=== PATIENT | female | born 1965 | race Caucasian/White ===

== ENCOUNTER → 2018-01-22 07:00 | Outpatient (CLI) | payer OTHER, SELFPAY ==
--- NOTE | 2018-01-22 06:50 | BI_ITS ---
MAMMOGRAPHY - BILATERAL SCREENING REASON FOR EXAM: Female, 53 years old. Routine annual screening examination. PERTINENT HISTORY: TECHNIQUE: Digital bilateral breast diana (3D mammographic acquisition) in the CC and MLO projections. 2-D mediolateral oblique (MLO) and craniocaudad (CC) views of both breasts were obtained. CAD: Full Field Digital Mammography with Computer Added Detection was performed. COMPARISON: 05/27/2016 FINDINGS: Breast Composition: The breasts are heterogeneously dense, which may obscure small masses. There are no dominant masses or suspicious calcifications. No other significant abnormalities are identified. BI/SCREENING MAMM (CAD), BILAT IMPRESSION: Stable bilateral screening mammogram. Yearly follow-up mammogram recommended. (A) ASSESSMENT CATEGORY: BIRADS Category 2: Benign. A letter regarding these results will be sent to the patient by the facility within 30 days. Approximately 10% of breast cancers are not detected by mammography. A normal mammogram should not delay biopsy of a clinically suspicious abnormality. [id number] Electronically Signed: Charissa Velasquez MD at 15:21 EDT Tel , Service support ,
--- NOTE | 2018-01-22 07:00 | DT_ITS ---
This patient was seen during an EMR downtime January 19, 2018 - January 26, 2018. This patient may have a combination of paper and electronic documentation or all paper documentation. All documentation is viewable within the e-chart portion of [facility] for each patient visit.
== END ==
PROVIDERS: Family Provider Family Medicine; PCP Family Medicine; Visit Provider Family Medicine
DX: Z00.00 Encounter for general adult medical examination without abnormal findings (principal); Z12.31 Encounter for screening mammogram for malignant neoplasm of breast
CPT/HCPCS: 77063; 77067

== ENCOUNTER 2018-02-06 07:00 | Outpatient (RCR) | payer OTHER, SELFPAY ==
--- NOTE | 2018-01-06 07:53 | HP.PTEVAL_ITS ---
Patient's Visit Information RIGOBERTO NAVARRETE is a 53 year old F referred to Physical Therapy by Josy Molina MD with a diagnosis of Shoulder Sprain. Date of Evaluation: 01/06/18 Physical Therapist: Yumiko Curtis - Visit Plan Frequency: 2x /Week Duration: 4 Weeks Plan: Focus on ROM, strength and functional mobility- modalities for pain - Subjective Subjective: Left shoulder pain- when she got the flu shot in the fall the arm never bounced back. Did all her normal stuff but it really hurt the arm. Got sick one night and sat by the toilet and pushed down hard and felt a sharp pain under the armpit and across the chest. Feels like the shoulder is improving but its still bothering her. Describes discomfort as jacinto horse. Sleep: disturbed- hard to get comfortable. worst: 8/10 Agg: reaching overhead, behind her back. Eases: Aleve as needed. Best: 0/10. No N/T in the fingers. Does not feel like nerve pain. No neck pain- no blurred vision, dizziness, PERDOMO. Went as saw MD for wellness who didn't seem to concerned and sent her to PT ( Dr. Molina). No x-rays. Saw a massage therapist who was working and stretching her arm and she could move her arm a little bit more. Feels a pinch in the medial border of the scapula. Work: stays at home with her 2 grandchildren (6 years old and 1 year old). Right hand dominate. PMHx:none Meds: none - Objective Posture: FH, RS, increased guarding of the left UE. Palpation: tender along medial border of the scapula. ROM: Cervical: WNL in all planes no pain, Shoulder: AROM: flexion 120 degrees, abduction: 70 degrees, IR: to pocket, ER: 40 degrees. AAROM: flexion: 160 degrees, flexion: 140 degrees. Strength: Flexion: 4/5, Extn: 4+/5, abd: 4/5, IR/ER: 4/5 Scap: fair- mild winging. Impingment: positive, Empty Can: positive - Goals Goal 1:: Patient will be I with HEP and progression Goal Time Frame: 4-6 Weeks Goal 2:: Patient will demo full AROM of the left shoulder Goal Time Frame: 4-6 Weeks Goal 3:: Patient will maintain proper posture t/o tx session to demo increased scap s/s. Goal Time Frame: 4-6 Weeks Goal 4:: Patient will report sleeping through the night for 1 week without shoulder pain Goal Time Frame: 4-6 Weeks - Rehabilitation Potential Physical Therapy Diagnosis: Patient presents with hypomobility- she has decreased ROM, strength and muscular endurance leading to poor posture and increased pain with ADL's. - Anticipated Interventions Patient/Client Instruction: Educate patient on: Benefits of Fitness Program For the Purpose of:: To improve ability to perform ADL's Therapeutic Exercise to Include: Strength training, Endurance training, Body mechanics, Postural training, Passive ROM, Active ROM, Scapular Strength/ Stabilization For the Purpose of:: To improve muscle performance and motor function TENS: Yes Cryotherapy (ice pack, ice massage): Yes Thermo therapy (hot pack): Yes Ultrasound (thermal/non thermal): Yes For the Purpose of:: To decrease pain Thank you for the opportunity to evaluate your patient. For Medicare and Medicare HMO plans, please review the plan of care and approve it. It will need to be FAXED BACK to us at [phone] for Medicare purposes. Please let me know if there are questions or concerns regarding this plan of care. Physician Signature: Date:
--- NOTE | 2018-02-06 07:23 | HP.PTREVAL_ITS ---
Josy Molina MD, It has been my pleasure to treat RIGOBERTO NAVARRETE over the last 8 visits for Shoulder Sprain. Please see the progress note below for an update on the physical therapy plan of care! Subjective: The shoulder is getting better- plans to continue the weight training- she has weights at home. Sleep is not disturbed- Sitting there is no pain in the shoulder its just when she moves it in certain directions she feels it in the deltoid. Worst in the last few days is a 2/10 but most of hte time is painfree. No aleve this week. Objective/Function: Posture: good throughout session Palpation: not tender ROM : Cervical: WNL in all planes no pain, Shoulder: AROM: flexion 170 degrees, abduction: to ear, IR: equal to other, ER: 40 degrees. Strength: Flexion: 4+/5, Extn: 5/5, abd: 4/5, IR/ER: 4+/5 Scap: fair plus- mild winging. Impingment: positive, Empty Can: positive Plan Plan: Hold- will attempt HEP and call if questions Goals Goal 1:: Patient will be I with HEP and progression Goal Time Frame: 4-6 Weeks Goal Progress: Goal Met Goal 2:: Patient will demo full AROM of the left shoulder Goal Time Frame: 4-6 Weeks Goal Progress: Goal Met Goal 3:: Patient will maintain proper posture t/o tx session to demo increased scap s/s. Goal Time Frame: 4-6 Weeks Goal Progress: Progressing Goal 4:: Patient will report sleeping through the night for 1 week without shoulder pain Goal Time Frame: 4-6 Weeks Goal Progress: Goal Met Anticipated Interventions Patient/Client Instruction: Educate patient on: Benefits of Fitness Program For the Purpose of:: To improve ability to perform ADL's Therapeutic Exercise to Include: Strength training, Endurance training, Body mechanics, Postural training, Passive ROM, Active ROM, Scapular Strength/ Stabilization For the Purpose of:: To improve muscle performance and motor function TENS: Yes Cryotherapy (ice pack, ice massage): Yes Thermo therapy (hot pack): Yes Ultrasound (thermal/non thermal): Yes For the Purpose of:: To decrease pain Please do not hesitate to contact me at [phone] by phone or Fax: if you have questions or concerns regarding this new plan of care! Sincerely, Yumiko Curtis
--- NOTE | 2018-05-12 10:39 | HP.PT.NRP ---
HP - Discharge Summary (1) - Patient Information RIGOBERTO NAVARRETE was seen in my office for initial evaluation on 01/06/18. The following Plan of Care was established for this patient: Initial Frequency: 2x /Week Initial Duration: 4 Weeks - Anticipated Interventions Patient/Client Instruction: Educate patient on: Benefits of Fitness Program For the Purpose of:: To improve ability to perform ADL's Therapeutic Exercise to Include: Strength training, Endurance training, Body mechanics, Postural training, Passive ROM, Active ROM, Scapular Strength/Stabilization For the Purpose of:: To improve muscle performance and motor function TENS: Yes Cryotherapy (ice pack, ice massage): Yes Thermo therapy (hot pack): Yes Ultrasound (thermal/non thermal): Yes For the Purpose of:: To decrease pain This patient was last seen in our office . Pertinent comments regarding their Physical therapy will appear below: Patient has not attended physical therapy in over 8 weeks. At this time patient is appropriate for d/c and return to MD as needed. At this point I will be discontinuing this patient from physical therapy. I would be happy to see this patient again in the future if found appropriate by the physician. Thank you! Yumiko Curtis
== END 2018-02-06 19:00 | disposition home or self-care (01) ==
LOC: PT 07:00
PROVIDERS: Family Provider Family Medicine; PCP Family Medicine; Visit Provider Family Medicine
DX: S46.912D Strain of unspecified muscle, fascia and tendon at shoulder and upper arm level, left arm, subsequent encounter (principal)
CPT/HCPCS: 97014; 97032; 97110; 97161; 97164; G0283

== ENCOUNTER → 2020-03-08 12:36 | Outpatient (CLI) | payer OTHER, SELFPAY ==
[2020-02-29 06:32] VITALS: BMI 27.0
--- NOTE | 2020-03-08 12:39 | RAD_ITS ---
STUDY: X-RAY - PARANASAL SINUSES REASON FOR EXAM: Female, 55 years old. Ear pain and pressure into right side of forehead and face TECHNIQUE: 3 view(s) of the paranasal sinuses were obtained. COMPARISON: None. FINDINGS: Normal visualized frontal, maxillary, ethmoidal and sphenoid sinuses. Normal visualized facial bones. The soft tissue structures are unremarkable. RAD/Sinuses min 3 Views IMPRESSION: Normal x-rays of the paranasal sinuses. Electronically Signed: Clay Gee MD at 12:54 EDT , Service support ,
== END ==
PROVIDERS: PCP Family Medicine; Referring Provider Family Medicine; Visit Provider Family Medicine
DX: H92.01 Otalgia, right ear (principal)
CPT/HCPCS: 70220

== ENCOUNTER → 2021-05-04 06:32 | Outpatient (CLI) | payer OTHER, SELFPAY | PROVIDERS: PCP Family Medicine; Referring Provider Family Medicine; Visit Provider Family Medicine | DX: Z01.84 Encounter for antibody response examination (principal) | CPT/HCPCS: 36415; 86769 ==

== ENCOUNTER → 2022-04-02 | Outpatient (CLI) | payer OTHER, SELFPAY ==
[2022-04-02 13:27] LABS: Anion Gap 6 (5-15); BUN 15 mg/dL (7-18); BUN/Creat Ratio 21.6 RATIO (10-20); Calcium,Total 9.6 mg/dL (8.5-10.1); Chloride 106 mmol/L (98-107); Cholesterol 246 mg/dL (200); Creatinine, Serum 0.69 mg/dL (0.55-1.02); EST Glomerular Filtration Rate 93 mL/min (>60); Est Glom Filt Rate - Afr Amer 113 mL/min (>60); Glucose 75 mg/dL (74-106); High Density Lipoprotein 63 mg/dL; Potassium 3.8 mmol/L (3.5-5.1); Sodium Level 142 mmol/L (136-145); Triglycerides 82 mg/dL; Very Low Density Lipoprotein 16 mg/dL (5-40)
[2022-04-07 15:22] LABS: HPV APTIMA, High Risk Negative (Negative)
[2022-04-07 15:23] LABS: HPV Reflexed? YES, CHARGE PATIENT
== END | disposition home or self-care (01) ==
PROVIDERS: PCP Family Medicine; Referring Provider Family Medicine; Visit Provider Family Medicine
DX: Z00.00 Encounter for general adult medical examination without abnormal findings (principal); Z12.4 Encounter for screening for malignant neoplasm of cervix
CPT/HCPCS: 36415; 80048; 80061; 87624; 88175; G0145

== ENCOUNTER → 2022-04-18 | Outpatient (CLI) | payer OTHER, SELFPAY ==
--- NOTE | 2022-04-18 10:27 | BI_ITS ---
MAMMOGRAPHY - BILATERAL SCREENING REASON FOR EXAM: Female, 57 years old. Routine annual screening examination. PERTINENT HISTORY: Non-contributory. TECHNIQUE: Digital bilateral breast wendi (3D mammographic acquisition) in the CC and MLO projections. 2-D mediolateral oblique (MLO) and craniocaudad (CC) views of both breasts were obtained. CAD: Full Field Digital Mammography with Computer Added Detection was performed. COMPARISON: Comparison is made with prior study of 01/22/2018 and 03/27/2016. FINDINGS: Breast Composition: The breasts are heterogeneously dense, which may obscure small masses. There are no dominant masses or suspicious calcifications. Stable small benign-appearing bilateral axillary lymph nodes. No other significant abnormalities are identified. There has been no significant change since the prior study. BI/SCRN MAMM (CAD)W/WENDI BILAT IMPRESSION: Stable bilateral screening mammogram. Yearly follow-up mammogram recommended. (A) ASSESSMENT CATEGORY: BIRADS Category 2: Benign. A letter regarding these results will be sent to the patient by the facility within 30 days. Approximately 10% of breast cancers are not detected by mammography. A normal mammogram should not delay biopsy of a clinically suspicious abnormality. [id number] Electronically Signed: Raul Brar MD at 11:32 EDT ,
--- NOTE | 2022-04-18 10:32 | BD_ITS ---
STUDY: DUAL ENERGY X-RAY ABSORPTIOMETRY / DXA REASON FOR EXAM: Female, 57 years old. [id number] TECHNIQUE: Bone Mineral Density (BMD) measurements of lumbar spine and bilateral hips were obtained. COMPARISON: Comparison is made with prior study 03/27/2016. FINDINGS: Lumbar Spine (L1-L4): g/cm2 (0.792) / T-score (-2.3) / Z-score (-1.2) Findings are suggestive of osteopenia with a high fracture risk. Left Femur Total: g/cm2 (0.714) / T-score (-1.9) / Z-score (-1.2) Left Femoral Neck: g/cm2 (0.532) / T-score (-2.9) / Z-score (-1.8) Right Femur Total: g/cm2 (0.707) / T-score (-1.9) / Z-score (-1.2) Right Femoral Neck: g/cm2 (0.541) / T-score (-2.8) / Z-score (-1.7) The T-Scores on the most recent prior examination were: Lumbar Spine (L1-L4): There has been worsening of bone density since the previous examination. Left Femur Total: which represents a worsening of 1.3%. Right Femur Total: which represents a worsening of 2.9%. BD/Dexa Bone Density Study IMPRESSION: The patient is considered osteoporotic as outlined below according to World Nick Organization (WHO) criteria with a high fracture risk. There has been worsening of bone density since the previous examination. Reference Information: The T-score is the number of standard deviations above or below the standard which is normal for young adults at their peak bone mineral density. The World Health Organization (WHO) interprets the T-scores as follows: Above -1 Normal bone density Between -1 and -2.5 Osteopenia Equal to / or below -2.5 Osteoporosis As a practical clinical guideline, osteopenia may be graded as follows: Mild -1 through -1.5 Moderate -1.6 through -2.0 Severe -2.1 through -2.4 The Z-score is the number of standard deviations above or below age-matched controls. A Z-score of less than -1.5 would be considered abnormal. References: 1. NIH Osteoporosis and Related Bone Diseases www osteo.org 2. International Society for Clinical Densitometry www iscd.org 3. National Osteoporosis Foundation www nof.org Electronically Signed: Raul Brar MD at 12:46 EDT ,
== END | disposition home or self-care (01) ==
LOC: OPBD 10:24
PROVIDERS: PCP Family Medicine; Visit Provider Family Medicine
DX: N95.9 Unspecified menopausal and perimenopausal disorder (principal); Z12.31 Encounter for screening mammogram for malignant neoplasm of breast
CPT/HCPCS: 77063; 77067; 77080

== ENCOUNTER → 2022-06-13 | Outpatient (CLI) | payer OTHER, SELFPAY ==
[2022-06-13 08:09] LABS: AST(SGOT) 20 U/L (15-37); Alanine Aminotransfer ALT/SGPT 29 U/L (13-56); Albumin, Serum 3.8 g/dL (3.2-5.0); Alkaline Phosphatase 91 U/L (45-117); Bilirubin, Direct 0.22 mg/dL (0.00-0.30); Cholesterol 129 mg/dL (200); Globulin 3.5 g/dL (2.2-4.2); High Density Lipoprotein 63 mg/dL; Protein, Total 7.3 g/dL (6.4-8.2); Triglycerides 46 mg/dL; Very Low Density Lipoprotein 9 mg/dL (5-40)
== END | disposition home or self-care (01) ==
LOC: LAB 06:36
PROVIDERS: PCP Family Medicine; Referring Provider Family Medicine; Visit Provider Family Medicine
DX: E78.5 Hyperlipidemia, unspecified (principal)
CPT/HCPCS: 36415; 80061; 80076

== ENCOUNTER → 2022-11-01 | Outpatient (CLI) | payer OTHER, SELFPAY ==
[2022-11-01 09:57] LABS: Cholesterol 161 mg/dL (200); High Density Lipoprotein 69 mg/dL; Triglycerides 57 mg/dL; Very Low Density Lipoprotein 11 mg/dL (5-40)
== END | disposition home or self-care (01) ==
LOC: LAB 09:10
PROVIDERS: PCP Family Medicine; Referring Provider Family Medicine; Visit Provider Family Medicine
DX: E78.5 Hyperlipidemia, unspecified (principal)
CPT/HCPCS: 36415; 80061

== ENCOUNTER → 2023-12-31 | Outpatient (CLI) | payer SELFPAY ==
[2023-12-31 09:11] LABS: Hemoglobin A1c 5.2 % (3.8-5.6)
[2023-12-31 09:20] LABS: AST(SGOT) 24 U/L (15-37); Alanine Aminotransfer ALT/SGPT 31 U/L (13-56); Cholesterol 161 mg/dL (200); High Density Lipoprotein 63 mg/dL; Triglycerides 57 mg/dL; Very Low Density Lipoprotein 11 mg/dL (5-40)
== END | disposition home or self-care (01) ==
PROVIDERS: PCP Family Medicine; Referring Provider Family Medicine; Visit Provider Family Medicine
DX: E78.5 Hyperlipidemia, unspecified (principal); Z83.3 Family history of diabetes mellitus
CPT/HCPCS: 36415; 80061; 83036; 84450; 84460